=== PATIENT | male | born 1975 | race Hispanic/Latino ===

== ENCOUNTER 2019-07-09 23:24 | Emergency (ER) | payer OTHER ==
[~2019-07-09] VITALS: Ht 154.9 cm; Wt 95.3 kg
[2019-07-10] MEDS ORDERED: ALPHA LIPOIC A300 MG PO (00:41)
[2019-07-10] MEDS ORDERED: FENOFIBRATE48 MG PO (00:41)
[2019-07-10] MEDS ORDERED: LANTUS100 UNITS/ SUB-Q (00:42)
[2019-07-10] MEDS ORDERED: GLUCOPHAGE500 MG PO (00:42)
[2019-07-10] MEDS ORDERED: LOSARTAN POTASS50 MG PO (00:42)
[2019-07-10] MEDS ORDERED: TOPROL XL50 MG PO (00:43)
[2019-07-10] MEDS ORDERED: OMEPRAZOLE20 MG PO (00:54)
[2019-07-10] MEDS ORDERED: NITROGLYCERIN0.4 MG SL (00:55)
[2019-07-10] MEDS ORDERED: CRESTOR40 MG NG (00:55)
--- NOTE | 2019-07-10 11:56 | EKG ---
[facility] [address] [facility] [place], [place] [address] Signed Normal sinus rhythm Normal ECG No previous ECGs available Confirmed by STACIE CREWS DO ([id number]) on 07/10/2019 11:56:19 AM Electronically Signed By: STACIE CREWS DO 07/10/19 1156 PATIENT NAME: OLIVIA CAMPOVERDE Electrocardiogram DATE OF : 73 PHYSICIAN: STACIE CREWS DO REPORT #: [id number] REPORT IS CONFIDENTIAL AND NOT TO BE RELEASED WITHOUT AUTHORIZATION
== END 2019-07-10 01:32 | disposition home or self-care (01) ==
LOC: ED 23:24
DX: R07.9 Chest pain, unspecified (principal); I10 Essential (primary) hypertension; E11.9 Type 2 diabetes mellitus without complications; I25.2 Old myocardial infarction; Z95.5 Presence of coronary angioplasty implant and graft; Z87.891 Personal history of nicotine dependence; Z79.4 Long term (current) use of insulin; Z79.899 Other long term (current) drug therapy
CPT/HCPCS: 71046; 80053; 84484; 85025; 85379; 85610; 85730; 93005; 93010; 99285-25

== ENCOUNTER 2022-11-14 23:08 | Emergency (ER) | payer OTHER ==
[~2022-11-14] VITALS: Ht 154.9 cm; Wt 95.3 kg
[~2022-11-14 23:08] MED LIST: ALPHA LIPOIC A300 MG PO; BAYER CHEWABLE81 MG PO; CRESTOR40 MG NG; FENOFIBRATE48 MG PO; GLUCOPHAGE1000 MG PO; GLUCOPHAGE500 MG PO; JARDIANCE10 MG PO; LANTUS100 UNITS/ SUB-Q; LOSARTAN POTASS50 MG PO; NITROGLYCERIN0.4 MG SL; NOVOLOG100 UNIT/1 SUB-Q; OMEPRAZOLE20 MG PO; TOPROL XL50 MG PO
== END 2022-11-15 01:50 | disposition home or self-care (01) ==
LOC: ED 23:08
DX: R10.11 Right upper quadrant pain (principal); E86.0 Dehydration; I10 Essential (primary) hypertension; E78.5 Hyperlipidemia, unspecified; E11.9 Type 2 diabetes mellitus without complications; I25.2 Old myocardial infarction; Z87.891 Personal history of nicotine dependence; Z79.899 Other long term (current) drug therapy; Z79.4 Long term (current) use of insulin; Z79.82 Long term (current) use of aspirin
CPT/HCPCS: 36415; 76705; 80053; 81003; 83690; 85025; 96374; 96375; 99284-25; J1885; J2405; J7121

== ENCOUNTER 2024-08-20 01:52 | Emergency (ER) | payer OTHER ==
[~2024-08-20] VITALS: Ht 154.9 cm; Wt 102.2 kg
[~2024-08-20 01:52] MED LIST changes: +AVAPRO300 MG PO; +FAMOTIDINE20 MG PO; +HYDROCHLOROTHIA50 MG PO; +K-TAB ER20 MEQ PO
[2024-08-20] MEDS ORDERED: NITROGLYCERIN PACKET TOP ONE (02:00)
[2024-08-20] MEDS ORDERED: MORPHINE SULFATE 4 MG/ML VIAL IV ONE (02:00)
[2024-08-20 02:14] LABS: BASOPHILS 1.4 % (0-2); EOSINOPHILS 3.7 % (0-6); HEMATOCRIT 45.2 % (35.0-50.0); HEMOGLOBIN 15.2 g/dL (12.0-18.0); LYMPHOCYTES 23.7 % (24-44); MCH 29.8 (27-36); MCHC 33.7 g/dl (30-36); MCV 88.5 fl (81-99); MONOCYTES 6.7 % (0-12); NEUTROPHILS 64.5 % (39-80); PLATELET COUNT 379 K/uL (140-440); RBC 5.11 M/ul (4.3-5.7); RDW 14.3 (10.5-15.0)
[2024-08-20 02:49] LABS: INR 0.91 (0.80-1.30); PROTIME 11.9 Sec (11.2-14.2)
[2024-08-20 03:13] LABS: ALBUMIN/GLOBULIN RATIO 1.05 (1.1-2.4); ANION GAP 14.3 (7-21); BILIRUBIN, TOTAL 0.3 ng/dL (0.2-1.0); BUN/CREATININE RATIO 15.33 (6.0-28.6); CREATININE, SERUM 1.5 mg/dL (0.70-1.30); POTASSIUM 3.3 mmol/L (3.5-5.1); PROTEIN, TOTAL 7.8 g/dL (6.4-8.2)
[2024-08-20 04:20] VITALS: BP 128/79
--- NOTE | 2024-08-20 21:45 | EKG ---
[facility] [address] [place] [address] Signed Normal sinus rhythm Inferior infarct , age undetermined Abnormal ECG When compared with ECG of 12-OCT-2020 22:26, No significant change was found Confirmed by Salma Junior MD () on 08/20/2024 9:45:03 PM Electronically Signed By: SALMA JUNIOR MD 08/20/24 2145 PATIENT NAME: CAMPOVERDEOLIVIA Electrocardiogram DATE OF : 73 PHYSICIAN: SALMA JUNIOR MD REPORT #: [id number] REPORT IS CONFIDENTIAL AND NOT TO BE RELEASED WITHOUT AUTHORIZATION
== END 2024-08-20 04:21 | disposition home or self-care (01) ==
LOC: ED 01:52
PROVIDERS: Family Medicine
DX: R07.89 Other chest pain (principal); I25.2 Old myocardial infarction; I10 Essential (primary) hypertension; E11.9 Type 2 diabetes mellitus without complications; E78.5 Hyperlipidemia, unspecified; Z95.5 Presence of coronary angioplasty implant and graft; Z87.891 Personal history of nicotine dependence; Z79.4 Long term (current) use of insulin; Z79.84 Long term (current) use of oral hypoglycemic drugs; Z79.82 Long term (current) use of aspirin; Z79.899 Other long term (current) drug therapy
CPT/HCPCS: 36415; 71045; 80053; 83735; 83880; 84484; 85025; 85379; 85610; 93005; 93010; 99285-25

== ENCOUNTER 2025-08-12 13:15 | Emergency (ER) | payer OTHER ==
[~2025-08-12] VITALS: Ht 154.9 cm; Wt 98.0 kg
[2025-08-12] MEDS ORDERED: ALBUTEROL/IPRATROPIUM 3 ML NEB INH PRN (13:30)
[2025-08-12 13:56] LABS: BASOPHILS 0.4 % (0.2-1.2); EOSINOPHILS 4.7 % (0.8-7.0); LYMPHOCYTES 25.0 % (21.8-53.1); MCH 29.9 PG (25.7-32.2); MCHC 34.5 g/dL (32.3-36.5); MCV 86.7 fL (79.0-92.2); MONOCYTES 6.3 % (5.3-12.2); NEUTROPHILS 63.3 % (34.0-67.9); RBC 5.65 M/uL (4.63-6.08)
[2025-08-12] MEDS ORDERED: ASPIRIN 81 MG CHEW PO ONE (14:00)
[2025-08-12 14:27] LABS: ALT (SGPT) 39.0 U/L (14-59); AST (SGOT) 37.0 U/L (15-37); GLOMERULAR FILTRATION RATE,EST 73.0 mL/min (>60); PROTEIN, TOTAL 8.0 g/dL (6.4-8.2); UREA NITROGEN 21.0 mg/dL (7-18)
[2025-08-12 16:33] VITALS: BP 137/73
--- NOTE | 2025-08-13 19:40 | EKG ---
[facility] [address] [facility] [place], [place] [address] Signed Sinus tachycardia Possible Inferior infarct (cited on or before 20-AUG-2024) Abnormal ECG When compared with ECG of 20-AUG-2024 02:01, No significant change was found Confirmed by Elizabeth Dorsey DO ([id number]) on 08/13/2025 7:40:36 PM Electronically Signed By: ELIZABETH DORSEY DO 08/13/251939 PATIENT NAME: OLIVIA CAMPOVERDE Electrocardiogram DATE OF : 73 PHYSICIAN: ELIZABETH DORSEY DO REPORT #: [id number] REPORT IS CONFIDENTIAL AND NOT TO BE RELEASED WITHOUT AUTHORIZATION
== END 2025-08-12 16:35 | disposition home or self-care (01) ==
LOC: ED 13:15
PROVIDERS: Emergency Medicine
DX: R06.02 Shortness of breath (principal); I10 Essential (primary) hypertension; E78.5 Hyperlipidemia, unspecified; E11.9 Type 2 diabetes mellitus without complications; Z87.891 Personal history of nicotine dependence; Z79.899 Other long term (current) drug therapy; Z79.82 Long term (current) use of aspirin; Z79.4 Long term (current) use of insulin
CPT/HCPCS: 36415; 71045; 71260; 80053; 82550; 83735; 84484; 85025; 93005; 93010; 99285-25; A9270; Q9967